=== PATIENT | female | born 1960 | race Caucasian/White ===

== ENCOUNTER → 2021-03-22 | Outpatient (CLI) | payer OTHER ==
[~2021-03-22] MED LIST: CO Q10 LIQUID; COLLAGEN; LINA290C PO; MULT-658 PO; TURMERIC; VITA1TAB19 PO
[2021-03-22 15:07] LABS: BASOPHILS % (AUTO) 1 % (0-1); EOSINOPHILS % (AUTO) 2 % (1-7); LYMPHOCYTES % (AUTO) 40 % (22-44); MEAN CORPUSCULAR HEMOGLOBIN 32.5 pg (27.0-34.8); MEAN CORPUSCULAR HGB CONC 33.4 g/dL (32.4-35.8); MEAN PLATELET VOLUME 8.3 fL (7.4-10.4); MONOCYTES % (AUTO) 7 % (2-9); NEUTROPHILS % (AUTO) 50 % (42-75); PLATELET COUNT 302 x10^3/uL (130-400); RED BLOOD COUNT 3.98 x10^6/uL (3.82-5.3); RED CELL DISTRIBUTION WIDTH 12.8 % (9.6-15.2)
== END | disposition home or self-care (01) ==
LOC: STAR 14:20
PROVIDERS: ATTEND Surgery
DX: Z01.818 Encounter for other preprocedural examination (principal); Z15.01 Genetic susceptibility to malignant neoplasm of breast; C50.419 Malignant neoplasm of upper-outer quadrant of unspecified female breast; Z20.822 Contact with and (suspected) exposure to COVID-19
CPT/HCPCS: 36415; 85025; 93005; U0003; U0005

== ENCOUNTER 2021-03-28 12:19 | Observation (INO) | payer OTHER ==
[~2021-03-28] VITALS: Ht 167.6 cm; Wt 82.0 kg
[2021-03-28] MEDS ORDERED: LACTATED RINGERS 1,000 ML IV SCH ×2 (13:00→21:00)
[2021-03-28] MEDS ORDERED: CHLORHEXIDINE 15 ML UDC PO ONE (13:00)
[2021-03-28] MEDS ORDERED: EPINEPHRINE 1 MG/ML, 1ML ONE (14:12)
[2021-03-28] MEDS ORDERED: ISOSULFAN BLUE 10 MG/ML, 5ML IV ONE (14:12)
[2021-03-28] MEDS ORDERED: BUPIVACAINE/PF 0.5% ONE (14:12)
[2021-03-28] MEDS ORDERED: CEFAZOLIN 1,000 MG ONE ×3 (14:12→14:14)
[2021-03-28] MEDS ORDERED: GENTAMICIN 80 MG/2 ML ONE (14:12)
[2021-03-28] MEDS ORDERED: MIDAZOLAM 1 MG/ML, 2ML ONE (14:13)
[2021-03-28] MEDS ORDERED: FENTANYL PF 250 MCG/5ML ONE (14:13)
[2021-03-28] MEDS ORDERED: DEXAMETHASONE 4 MG/ML, 1ML ONE ×2 (14:14)
[2021-03-28] MEDS ORDERED: ROCURONIUM 10MG/ML,5ML ONE (14:14)
[2021-03-28] MEDS ORDERED: ONDANSETRON 2MG/ML, 2ML ONE ×3 (14:14→18:42)
[2021-03-28] MEDS ORDERED: LIDOCAINE-MPF 2% ,5ML ONE (14:14)
[2021-03-28] MEDS ORDERED: PROPOFOL 10 MG/ML, 20ML ONE (14:14)
[2021-03-28] MEDS ORDERED: VANCOMYCIN 1,000 MG ONE (14:29)
[2021-03-28] MEDS ORDERED: DIAZEPAM 5 MG/ML, 2ML IVPush PRN (14:30)
[2021-03-28] MEDS ORDERED: hydrALAzine 20 MG/ML, 1ML IV PRN (14:30)
[2021-03-28] MEDS ORDERED: MEPERIDINE/PF 25MG/0.5ML IVPush PRN (14:30)
[2021-03-28] MEDS ORDERED: ACETAMINOPHEN 325 MG TABLET PO PRN (14:30)
[2021-03-28] MEDS ORDERED: OXYcodone 5 MG/5 ML ORAL.SOL UDC PO PRN (14:30)
[2021-03-28] MEDS ORDERED: LABETALOL 5MG/ML, 20ML IV PRN (14:30)
[2021-03-28] MEDS ORDERED: HYDROmorphone 1 MG/ML, 1ML INJ IVPush PRN (14:30)
[2021-03-28] MEDS ORDERED: ONDANSETRON 2MG/ML, 2ML IVPush PRN (14:30)
[2021-03-28] MEDS ORDERED: OXYcodone 5 MG/5 ML ORAL.SOL UDC ONE (18:07)
[2021-03-28] MEDS ORDERED: FENTANYL PF 100 MCG/2ML ONE (18:07)
[2021-03-28] MEDS: FENTANYL PF 100 MCG/2ML IV PRN ×2 (18:11→18:24)
[2021-03-28] MEDS ORDERED: HYDROmorphone 1 MG/ML, 1ML INJ ONE (18:45)
[2021-03-28 20:00] VITALS: BP 164/81
[2021-03-28] MEDS ORDERED: LABETALOL 5 MG/ML SYR. (IV ONLY) IV PRN (21:00)
[2021-03-28] MEDS ORDERED: LORazepam 2 MG/ML, 1ML IVPush PRN (21:00)
[2021-03-28] MEDS ORDERED: DIPHENHYDRAMINE 50 MG/ML, 1ML IV PRN (21:00)
[2021-03-28] MEDS ORDERED: MORPHINE SULFATE 4 MG/ML, 1ML IVPush PRN (21:00)
[2021-03-28] MEDS ORDERED: ONDANSETRON 2MG/ML, 2ML IV PRN (21:00)
[2021-03-28] MEDS: IBUPROFEN 600 MG TABLET PO SCH (21:38)
[2021-03-29 00:06] VITALS: BP 128/82
[2021-03-29] MEDS: OXYcodone/APAP 5/325MG TABLET PO PRN ×3 (01:08→11:59)
[2021-03-29 04:18] VITALS: BP 112/75
[2021-03-29] MEDS: IBUPROFEN 600 MG TABLET PO SCH ×2 (05:33→13:07)
[2021-03-29 07:05] VITALS: BP 100/54
[2021-03-29 07:32] LABS: BASOPHILS % (AUTO) 0 % (0-1); EOSINOPHILS % (AUTO) 0 % (1-7); LYMPHOCYTES % (AUTO) 15 % (22-44); MEAN CORPUSCULAR HGB CONC 33.4 g/dL (32.4-35.8); MEAN PLATELET VOLUME 8.7 fL (7.4-10.4); MONOCYTES % (AUTO) 9 % (2-9); NEUTROPHILS % (AUTO) 76 % (42-75); PLATELET COUNT 237 x10^3/uL (130-400); RED BLOOD COUNT 3.61 x10^6/uL (3.82-5.3); RED CELL DISTRIBUTION WIDTH 12.9 % (9.6-15.2)
[2021-03-29] MEDS: LACTATED RINGERS 1,000 ML IV SCH (07:54)
[2021-03-29] MEDS ORDERED: LACTATED RINGERS 500 ML IVBOLUS ONE (08:00)
[2021-03-29] MEDS: MULTIVITS,STRESS FORMULA 1 TABLET PO SCH (08:07)
[2021-03-29] MEDS: MULTIVITAMIN 1 TABLET PO SCH (08:07)
[2021-03-29] MEDS: LINACLOTIDE 290 MCG HOMEMEDPO SCH (08:07)
[2021-03-29 13:20] VITALS: BP 97/65
[2021-03-29] MEDS ORDERED: FENTANYL PF 250 MCG/5ML ONE (18:13)
[2021-03-29] MEDS ORDERED: MIDAZOLAM 1 MG/ML, 2ML ONE (18:13)
[2021-03-29] MEDS ORDERED: CEFAZOLIN 1,000 MG ONE ×2 (18:15→18:20)
[2021-03-29] MEDS ORDERED: ONDANSETRON 2MG/ML, 2ML ONE (18:15)
[2021-03-29] MEDS ORDERED: PROPOFOL 10 MG/ML, 20ML ONE (18:15)
[2021-03-29] MEDS ORDERED: DEXAMETHASONE 4 MG/ML, 1ML ONE (18:15)
[2021-03-29] MEDS ORDERED: BUPIVACAINE/PF 0.5% ONE (18:19)
[2021-03-29] MEDS ORDERED: EPINEPHRINE 1 MG/ML, 1ML ONE (18:19)
[2021-03-29] MEDS ORDERED: VANCOMYCIN 1,000 MG ONE (18:20)
[2021-03-29] MEDS ORDERED: GENTAMICIN 80 MG/2 ML ONE (18:20)
[2021-03-29] MEDS ORDERED: HALOPERIDOL 5 MG/ML IV PRN (18:30)
[2021-03-29] MEDS ORDERED: MEPERIDINE/PF 25MG/0.5ML IVPush PRN (18:30)
[2021-03-29] MEDS ORDERED: LABETALOL 5MG/ML, 20ML IV PRN (18:30)
[2021-03-29] MEDS ORDERED: HYDROmorphone 1 MG/ML, 1ML INJ IVPush PRN (18:30)
[2021-03-29] MEDS ORDERED: PROMETHAZINE 25 MG/ML, 1ML IVPush PRN (18:30)
[2021-03-29] MEDS ORDERED: morphine SULFATE 10 MG/ML, 1ML IVPush PRN (18:30)
[2021-03-29] MEDS ORDERED: OXYcodone 5 MG/5 ML ORAL.SOL UDC PO PRN (18:30)
[2021-03-29] MEDS ORDERED: hydrALAzine 20 MG/ML, 1ML IV PRN (18:30)
[2021-03-29] MEDS ORDERED: ACETAMINOPHEN 325 MG TABLET PO PRN (18:30)
[2021-03-29] MEDS ORDERED: FENTANYL PF 100 MCG/2ML ONE (19:41)
[2021-03-29] MEDS ORDERED: OXYcodone 5 MG/5 ML ORAL.SOL UDC ONE (19:41)
[2021-03-29] MEDS: FENTANYL PF 100 MCG/2ML IV PRN ×2 (19:44→20:27)
[2021-03-29 20:57] VITALS: BP 104/53
[2021-03-30 00:22] VITALS: BP 115/64
[2021-03-30] MEDS: OXYcodone/APAP 5/325MG TABLET PO PRN ×4 (00:52→14:23)
[2021-03-30] MEDS: LACTATED RINGERS 1,000 ML IV SCH ×2 (00:52→08:01)
[2021-03-30 03:39] VITALS: BP 94/47
[2021-03-30 06:39] VITALS: BP 98/60
[2021-03-30] MEDS: LINACLOTIDE 290 MCG HOMEMEDPO SCH (07:00)
[2021-03-30] MEDS: MULTIVITAMIN 1 TABLET PO SCH (08:01)
[2021-03-30] MEDS: MULTIVITS,STRESS FORMULA 1 TABLET PO SCH (08:01)
[2021-03-30 14:48] VITALS: BP 93/59
== END 2021-03-30 15:15 | disposition home or self-care (01) ==
LOC: OUT 12:19 → 4NE 19:59 → OUT 20:44 → 4NE 20:45
PROVIDERS: ADMIT Surgery; ATTEND Plastic Surgery
DX: C50.912 Malignant neoplasm of unspecified site of left female breast (principal); F32.9 Major depressive disorder, single episode, unspecified; G47.00 Insomnia, unspecified; N64.89 Other specified disorders of breast; Z90.710 Acquired absence of both cervix and uterus; Z87.891 Personal history of nicotine dependence; Z17.0 Estrogen receptor positive status [ER+]; Z15.01 Genetic susceptibility to malignant neoplasm of breast; Z40.01 Encounter for prophylactic removal of breast; Z90.13 Acquired absence of bilateral breasts and nipples; Z85.3 Personal history of malignant neoplasm of breast; Z79.899 Other long term (current) drug therapy
CPT/HCPCS: 19303; 36415; 38500; 38792; 85025; 88307; 88333; 96360; 96361; A9541; C1762; C1789; G0378; J0171; J0690; J1100; J1170; J1580; J2250; J2405; J2704; J3010; J3370; J3490; J7120; S0020; 88305